=== PATIENT | female | born 1960 | race Caucasian/White ===

== ENCOUNTER 2023-08-14 09:45 | Emergency (ER) | payer BC ==
[~2023-08-14] VITALS: Ht 175.3 cm; Wt 68.0 kg
[2023-08-14 10:13] LABS: BASOPHILS ABSOLUTE AUTO 0.04 K/mm3 (0.00-0.23); BASOPHILS PERCENT AUTO 1 % (0-2); EOSINOPHILS ABSOLUTE AUTO 0.38 K/mm3 (0.00-0.68); EOSINOPHILS PERCENT AUTO 5 % (0-6); Hematocrit 42.5 % (33.0-51.0); Hemoglobin 14.5 g/dL (11.5-16.0); IMMATURE GRAN ABSOLUTE AUTO 0.02 K/mm3 (0.00-0.10); IMMATURE GRAN PERCENT AUTO 0 % (0-1); LYMPHOCYTES ABSOLUTE AUTO 2.77 K/mm3 (0.84-5.20); LYMPHOCYTES PERCENT AUTO 39 % (21-46); MONOCYTES ABSOLUTE AUTO 0.48 K/mm3 (0.16-1.47); MONOCYTES PERCENT AUTO 7 % (4-13); Mean Corpuscular HGB 29.4 pg (26.0-34.0); Mean Corpuscular HGB Conc 34.1 g/dL (31.5-36.5); Mean Corpuscular Volume 86 fL (80-100); Mean Platelet Volume 10.1 fL (9.1-12.4); NEUTROPHILS ABSOLUTE AUTO 3.44 K/mm3 (1.96-9.15); NEUTROPHILS PERCENT AUTO 48 % (41-73); Platelet Count 297 K/mm3 (150-400); RDW Coefficient Variation 12.4 % (11.7-14.2); RDW Standard Deviation 38.7 fL (35.1-46.3); Red Blood Cell Count 4.94 M/mm3 (3.80-5.20); White Blood Cell Count 7.13 K/mm3 (4.00-11.30)
[2023-08-14 10:40] LABS: Albumin, Blood 4.2 g/dL (3.4-5.0); Albumin/Globulin Ratio 1.2 (0.8-1.8); Bilirubin, Total 0.5 mg/dL (0.1-1.0); Bun/Creatinine Ratio 20.3 (12.0-20.0); Calcium, Blood 9.3 mg/dL (8.5-10.1); Creatinine, Blood 0.94 mg/dL (0.40-1.00); Globulin, Blood 3.5 g/dL (2.2-4.0); Magnesium, Blood 2.3 mg/dL (1.6-2.4); Potassium, Blood 3.7 mmol/L (3.5-5.5); Thyroid Stimulating Hormone 0.603 uIU/mL (0.360-4.800); Total Protein, Blood 7.7 g/dL (6.4-8.2)
[2023-08-14 14:00] VITALS: BP 150/85
== END 2023-08-14 14:10 ==
LOC: ER 09:45
PROVIDERS: Emergency Medicine
DX: I48.91 Unspecified atrial fibrillation (principal); Z79.01 Long term (current) use of anticoagulants
CPT/HCPCS: 80053; 83735; 84443; 84484; 85025; 92960; 93005; 93010; 99285-25; A9270; J0153; J2704; J7030

== ENCOUNTER 2024-05-03 22:26 | Observation (INO) | payer BC, MEDICARE ==
[~2024-05-03] VITALS: Ht 162.6 cm; Wt 74.8 kg
[2024-05-03] MEDS ORDERED: NS 1,000 ML IV ONE (22:57)
[2024-05-03 23:00] LABS: BASOPHILS ABSOLUTE AUTO 0.03 K/mm3 (0.00-0.23); BASOPHILS PERCENT AUTO 0 % (0-2); EOSINOPHILS ABSOLUTE AUTO 0.24 K/mm3 (0.00-0.68); EOSINOPHILS PERCENT AUTO 3 % (0-6); Hematocrit 41.4 % (33.0-51.0); Hemoglobin 13.8 g/dL (11.5-16.0); IMMATURE GRAN ABSOLUTE AUTO 0.01 K/mm3 (0.00-0.10); IMMATURE GRAN PERCENT AUTO 0 % (0-1); LYMPHOCYTES PERCENT AUTO 48 % (21-46); MONOCYTES PERCENT AUTO 14 % (4-13); Mean Corpuscular HGB 29.2 pg (26.0-34.0); Mean Corpuscular HGB Conc 33.3 g/dL (31.5-36.5); Mean Corpuscular Volume 88 fL (80-100); Mean Platelet Volume 9.7 fL (9.1-12.4); NEUTROPHILS ABSOLUTE AUTO 2.86 K/mm3 (1.96-9.15); NEUTROPHILS PERCENT AUTO 35 % (41-73); Platelet Count 248 K/mm3 (150-400); RDW Coefficient Variation 12.4 % (11.7-14.2); RDW Standard Deviation 39.8 fL (35.1-46.3); Red Blood Cell Count 4.73 M/mm3 (3.80-5.20); White Blood Cell Count 8.14 K/mm3 (4.00-11.30)
[2024-05-03] MEDS ORDERED: Diltiazem HCl 5 MG / ML 5ML Vial ONE (23:00)
[2024-05-03] MEDS ORDERED: Diltiazem HCl 5 MG / ML 5ML Vial IV ONE (23:10)
[2024-05-03 23:13] LABS: Albumin, Blood 4.1 g/dL (3.4-5.0); Albumin/Globulin Ratio 1.1 (0.8-1.8); Bilirubin, Total 0.3 mg/dL (0.1-1.0); Bun/Creatinine Ratio 30.9 (12.0-20.0); Calcium, Blood 9.6 mg/dL (8.5-10.1); Creatinine, Blood 0.78 mg/dL (0.40-1.00); Globulin, Blood 3.6 g/dL (2.2-4.0); Potassium, Blood 3.5 mmol/L (3.5-5.5); Total Protein, Blood 7.7 g/dL (6.4-8.2)
[2024-05-03] MEDS ORDERED: NS 1,000 ML IV SCH (23:20)
[2024-05-03 23:41] LABS: Magnesium, Blood 2.3 mg/dL (1.6-2.4); Phosphorus, Blood 3.1 mg/dL (2.5-4.9)
[2024-05-04] VITALS (10 sets, daily range): BP systolic 103–141; BP diastolic 67–78
[2024-05-04 00:22] LABS: Source, Urine Clean Catch
[2024-05-04 00:27] LABS: Bilirubin, Urine Neg (Neg); Blood, Urine Neg (Neg); Glucose Qualitative, Urine Neg (Neg); Ketones, Urine 1+ (Neg); Leukocyte Esterase, Urine Neg (Neg); Nitrite, Urine Neg (Neg); Protein, Urine Neg (Neg); Specific Gravity, Urine 1.005 (1.003-1.022); Urobilinogen, Urine NORM (Normal)
[2024-05-04 00:28] LABS: Appearance, Urine Clear (Clear); Color, Urine No Color (P-Yellow)
[2024-05-04] MEDS ORDERED: METO50ER PO (01:37)
[2024-05-04] MEDS ORDERED: ELIQUIS5 M3 PO (01:37)
[2024-05-04] MEDS ORDERED: FOSAMAX70 MG PO (01:37)
[2024-05-04 01:44] LABS: SARS-Cov-2 (COVID-19) PCR, MMC POSITIVE (NEGATIVE)
--- NOTE | 2024-05-04 02:33 | NUR ---
ASSUMPTION OF CARE/ARRIVAL NOTE PT ARRIVED TO PCU AT 0206 VIA ER FELA, THIS RN ASSUMED CARE AT THIS TIME. REPORT FROM BONNIE SILVERIO. PT TRANSFERRED VIA SLIDE SHEET. PT A&O X4, PLEASANT AND COOPERATIVE WITH CARE. VS; BP 120 - 130, HRR NSR AT 91. PT ARRIVED ON CARDIZEM GTT AT 15 MLS/HR, THIS RN TITRATED TO 5 MLS/HR. VSS. PT DENIES CP/PRESSURE, SOB, DIZZINESS, N/V. PT DOES ENDORSE PALPITATIONS. PT ON RA, AFEBRILE AT THIS TIME. PT WITH OCCASSIONAL DRY COUGH. LS CLEAR T/O. SKIN OVERALL INTACT. PT DENIES ISSUES OR CONCERNS GI/. RESIDENT IN TO DISCUSS DIAGNOSIS AND PLAN OF CARE WITH PT. RESIDENT TO ORDER ORAL MEDICATION AND RN TO PLACE GTT ON STANDBY. PT ORIENTED TO ROOM AND MADE COMFORTABLE. ALYSIA PLACED D/T PT HR INCREASING WITH ACTIVITY AND PER PPR. CALL LIGHT IN REACH
[2024-05-04] MEDS ORDERED: Remdesivir (EUA) 200 MG in NS 250 ML IV ONE (02:40)
[2024-05-04] MEDS ORDERED: DEXTROMETHORPHAN/BENZOCAINE 1 EACH LOZENGE MT PRN (03:00)
[2024-05-04 03:50] LABS: BASOPHILS ABSOLUTE AUTO 0.02 K/mm3 (0.00-0.23); BASOPHILS PERCENT AUTO 0 % (0-2); EOSINOPHILS ABSOLUTE AUTO 0.02 K/mm3 (0.00-0.68); EOSINOPHILS PERCENT AUTO 0 % (0-6); Hematocrit 41.1 % (33.0-51.0); Hemoglobin 13.4 g/dL (11.5-16.0); IMMATURE GRAN ABSOLUTE AUTO 0.01 K/mm3 (0.00-0.10); IMMATURE GRAN PERCENT AUTO 0 % (0-1); LYMPHOCYTES ABSOLUTE AUTO 1.18 K/mm3 (0.84-5.20); LYMPHOCYTES PERCENT AUTO 23 % (21-46); MONOCYTES ABSOLUTE AUTO 0.44 K/mm3 (0.16-1.47); MONOCYTES PERCENT AUTO 9 % (4-13); Mean Corpuscular HGB 28.8 pg (26.0-34.0); Mean Corpuscular HGB Conc 32.6 g/dL (31.5-36.5); Mean Corpuscular Volume 88 fL (80-100); Mean Platelet Volume 9.9 fL (9.1-12.4); NEUTROPHILS ABSOLUTE AUTO 3.47 K/mm3 (1.96-9.15); NEUTROPHILS PERCENT AUTO 67 % (41-73); Platelet Count 249 K/mm3 (150-400); RDW Coefficient Variation 12.7 % (11.7-14.2); RDW Standard Deviation 40.8 fL (35.1-46.3); Red Blood Cell Count 4.66 M/mm3 (3.80-5.20); White Blood Cell Count 5.14 K/mm3 (4.00-11.30)
[2024-05-04] MEDS ORDERED: dilTIAZem HCL 30 MG TAB PO ONE (04:00)
[2024-05-04 04:09] LABS: Albumin, Blood 3.8 g/dL (3.4-5.0); Albumin/Globulin Ratio 1.1 (0.8-1.8); Bilirubin, Total 0.3 mg/dL (0.1-1.0); Bun/Creatinine Ratio 30.3 (12.0-20.0); Calcium, Blood 8.7 mg/dL (8.5-10.1); Creatinine, Blood 0.63 mg/dL (0.40-1.00); Globulin, Blood 3.4 g/dL (2.2-4.0); Potassium, Blood 4.1 mmol/L (3.5-5.5); Total Protein, Blood 7.2 g/dL (6.4-8.2)
--- NOTE | 2024-05-04 05:55 | NUR ---
SHIFT SUMMARY PT REMAINS A&O X4, PLEASANT AND COOPERATIVE WITH CARE. PT REMAINS IN NSR WITH RATE IN 70 - 90'S, INCREASING TO 100'S WITH ACTIVITY. SBP 120 - 140, AFEBRILE, SPO2 97-100 % ON RA. PT DENIES CP/PRESSURE, SOB, DIZZINESS, N/V. DENIES GENERAL PAIN. CARDIZEM IN [place] AT BEDSIDE. ONE TIME 30 MG PO CARDIZEM ADMINISTERED PER ORDERS. PUREWICK INTIALLY PLACED D/T HR, BUT SINCE HR IMPROVED PUREWICK REMOVED AND PT HAS AMBULATED TO RESTROOM INDEPENDENTLY. GAIT STEADY. CALL LIGHT IN REACH, PT ABLE TO MAKE NEEDS KNOWN. WILL UPDATE ONCOMING RN
[2024-05-04] MEDS ORDERED: dilTIAZem HCL 30 MG TAB PO SCH ×2 (07:30)
--- NOTE | 2024-05-04 08:42 | NUR ---
am note this rn assumed care at 0700. vital signs stable. tele sinus rhythm 80s. spo2 >97% on room air. patient is alert and oriented x4. neuro is intact. patient is able to make needs known. independent in the room. patient denies pain, chest pain/pressure or shortness of breath. see shift assessment for further detials. patient in chair for breakfast and did morning adls. plan of care is up to date at this time.
[2024-05-04] MEDS ORDERED: Apixaban 5 MG Tab PO SCH (09:00)
[2024-05-04] MEDS ORDERED: Nitrofurantoin/Nitrofuran Mac 100 MG Cap PO SCH (09:00)
[2024-05-04] MEDS ORDERED: Alendronate Sodium 70 MG Tablet PO SCH (10:45)
[2024-05-04] MEDS ORDERED: DILT60 PO (11:12)
[2024-05-04] MEDS ORDERED: Tessalon200 MG PO (11:13)
[2024-05-04] MEDS ORDERED: NITR100CA PO (11:13)
--- NOTE | 2024-05-04 11:38 | NUR ---
DISCHARGE this rn went over follow up appointments with electron beam welder setter to discuss rate control medication and follow up with primary care provider. patient verbalized having an appointment with electron beam welder setter at end of month and would call both appointments. jeannette rn went over discharge medication. patient left with all belongings and in no distress.
[2024-05-05] MEDS ORDERED: Metoprolol Succinate 50 MG TABCR PO SCH (09:00)
== END 2024-05-04 12:03 | disposition home or self-care (01) ==
LOC: ER 22:26 → PCU 22:27
PROVIDERS: Emergency Medicine; Family Medicine; ADMIT Student in an Organized Health Care Education/Training Program
DX: I48.91 Unspecified atrial fibrillation (principal); U07.1 COVID-19; N39.0 Urinary tract infection, site not specified; Z79.01 Long term (current) use of anticoagulants; Z72.0 Tobacco use
CPT/HCPCS: 36415; 71045; 80053; 81003; 83735; 84100; 84145; 84443; 84484; 85025; 85379; 87086; 93005; 93010; 96365; 96366; 96367; 96376; 99285-25; A9270; G0378; J0248; J7030; J7050; U0002

== ENCOUNTER 2024-08-31 07:04 | Day surgery (SDC) | payer BC ==
[2024-08-31] VITALS (16 sets, daily range): BP systolic 101–170; BP diastolic 56–84
[~2024-08-31] VITALS: Ht 175.3 cm; Wt 73.7 kg
[~2024-08-31 07:04] MED LIST: DILT60 PO; ELIQUIS5 M3 PO; FOSAMAX70 MG PO; METO50ER PO; NITR100CA PO; NS 500 ML IV SCH; Tambocor100 MG PO; Tessalon200 MG PO
--- NOTE | 2024-08-31 07:25 | NUR ---
PT TO [facility] FOR COLONOSCOPY. CHART REVIEWED. PLAN OF CARE DISCUSSED. PT HAS RIDE HOME SET UP.
[2024-08-31] MEDS ORDERED: propofoL 40 ML IV ONE (08:09)
--- NOTE | 2024-08-31 08:33 | NUR ---
08/31/24 0833 Joselin Vasquez CONFIRMED AND REVIEWED H&P, MEDCICATIONS, ALLERGIES, MEDICAL HISTORY, RESPIRATORY HISTORY, VITAL SIGNS, 3-LEAD EKG, CONSENTS, AND PHYSICIAN ORDERS. PATIENT CONFIRMS NPO STATUS AND AGREES WITH SCHEDULED PROCEDURE. MONITOR INTACT WITH CONTINUOUS PULSE OXIMETRY, CAPNOGRAPHY, 3-LEAD EKG, INTERMITTENT BP. SUPPLEMENTAL O2 TO BE TITRATED THROUGHOUT PROCEDURE TO MAINTAIN O2 SATURATION ABOVE 90%. PATIENT DETERMINED TO BE ASA APPROPRIATE FOR PROPOFOL SEDATION PRIOR TO START OF PROCEDURE BY DR. STEVENS
--- NOTE | 2024-08-31 09:02 | NUR ---
Discharge instructions reviewed with patient. Patient verbalizes understanding. Copy given to patient to take home. Patient States Post-Procedure ride home has been arranged. Discharged via wheelchair to private car for ride home.
== END 2024-08-31 09:00 | disposition home or self-care (01) ==
LOC: ORSCMMR 07:04 → ORD 08:00 → ORSCMMR 08:00
PROVIDERS: Internal Medicine Gastroenterology
PROC: 0DBK8ZX Excision of Ascending Colon, Via Natural or Artificial Opening Endoscopic, Diagnostic (ICD-10-PCS; principal; 2024-08-31 08:00)
DX: Z12.11 Encounter for screening for malignant neoplasm of colon (principal); Z86.0100 Personal history of colon polyps, unspecified; D12.2 Benign neoplasm of ascending colon; I48.0 Paroxysmal atrial fibrillation; Z79.01 Long term (current) use of anticoagulants; Z79.899 Other long term (current) drug therapy
CPT/HCPCS: 88305; J2704; J7040